=== PATIENT | female | born 1980 | race Caucasian/White ===

== ENCOUNTER 2017-07-27 18:12 | Emergency (ER) | payer MEDICAID, OTHER ==
[2017-07-27] MEDS ORDERED: ACETAMINOPHEN 325 MG TABLET PO ONE (18:49)
--- NOTE | 2017-07-27 20:42 | RADIOLOGY REPORT (SQ) ---
EXAM DESCRIPTION: HIP RIGHT AP/LATERAL COMPLETED DATE/TIME: 07/27/2017 8:26 pm REASON FOR STUDY: Fall, right hip pain COMPARISON: None. NUMBER OF VIEWS: Two views. TECHNIQUE: AP pelvis and additional frog-leg view of the right hip. LIMITATIONS: None. FINDINGS: MINERALIZATION: Osteopenic RIGHT HIP: No acute fracture or dislocation. Old healed right iliac crest and medial acetabular fra ctures LEFT HIP: No fracture or dislocation. No worrisome bone lesions. PUBIS AND ISCHIUM: No fracture. PELVIS: Old healed right hemipelvis fracture over the iliac crest, with multiple screws over the ante rior superior and anterior inferior iliac spines SACRUM: No fracture or dislocation. No worrisome bone lesions. LOWER LUMBAR SPINE: No fracture or dislocation. No worrisome bone lesions. No significant disc disea se. SOFT TISSUES: No findings. OTHER: No other significant finding. IMPRESSION: Old right iliac crest and right acetabular fractures. No acute Fracture. TECHNICAL DOCUMENTATION: JOB ID: [id number] [employer]- All Rights Reserved
--- NOTE | 2017-07-27 20:43 | RADIOLOGY REPORT (SQ) ---
EXAM DESCRIPTION: FOOT RIGHT COMPLETE COMPLETED DATE/TIME: 07/27/2017 8:27 pm REASON FOR STUDY: fall, ankle pain COMPARISON: None. NUMBER OF VIEWS: Three views. TECHNIQUE: AP, lateral and oblique radiographic images acquired of the right foot. LIMITATIONS: Right ankle not well seen, nonstandard radiographic positioning FINDINGS: MINERALIZATION: Normal. BONES: No acute fracture or dislocation. No worrisome bone lesions. JOINTS: No effusions. SOFT TISSUES: No soft tissue swelling. No foreign body. OTHER: No other significant finding. IMPRESSION: No gross acute displaced fracture TECHNICAL DOCUMENTATION: JOB ID: [id number] [employer]- All Rights Reserved
--- NOTE | 2017-07-27 21:11 | ER Document Report ---
ED General - General Mode of Arrival: Wheelchair Information source: Patient - HPI Onset: This afternoon <RACH MONTE - Last Filed: 07/27/17 21:44> <SPENCER RODAS - Last Filed: 07/27/17 22:42> - General Chief Complaint: Fall Stated Complaint: FALL/HIP PAIN Time Seen by Provider: 07/27/17 19:19 Notes: Patient is a 37 year old female with a history of hip dysplasia presents to the emergency department due to a mechanical fall onset today. Patient states she was inside from outside when she fell on her right leg. Patient states as she was falling her right foot rolled and it felt like her hip was going to pop out of place. Patient states that her RLE hurts and she states her right hip feels like it still wants to dislocate. Patient denies any injuries due to the fall. (RACH MONTE) - Related Data Allergies/Adverse Reactions: meperidine HCl [From Demerol] Allergy (Verified 10/24/13 18:29) oxycodone [Oxycodone] Allergy (Verified 10/24/13 18:29) latex [Latex] Adverse Reaction (Verified 10/24/13 18:29) Past Medical History - Social History Smoking Status: Former Smoker Chew tobacco use (# tins/day): No Frequency of alcohol use: Rare Drug Abuse: None Family History: Reviewed & Not Pertinent Patient has suicidal ideation: No Patient has homicidal ideation: No Neurological Medical History: Reports: Hx Seizures Renal/ Medical History: Denies: Hx Peritoneal Dialysis Psychiatric Medical History: Reports: Hx Bipolar Disorder, Hx Depression Past Surgical History: Reports: Hx Abdominal Surgery - colon., Hx Section, Hx Cholecystectomy, Hx Hysterectomy - Immunizations Hx Diphtheria, Pertussis, Tetanus Vaccination: No <SPENCER RODAS - Last Filed: 07/27/17 22:42> Review of Systems - Review of Systems Constitutional: No symptoms reported EENT: No symptoms reported Cardiovascular: No symptoms reported Respiratory: No symptoms reported Gastrointestinal: No symptoms reported Genitourinary: No symptoms reported Female Genitourinary: No symptoms reported Musculoskeletal: See HPI - right hip and leg pain, Other Skin: No symptoms reported Hematologic/Lymphatic: No symptoms reported Neurological/Psychological: No symptoms reported -: Yes All other systems reviewed and negative <RACH MONTE - Last Filed: 07/27/17 21:44> Physical Exam <LAVELLSIMONAJESSI - Last Filed: 07/27/17 21:44> <SPENCER RODAS - Last Filed: 07/27/17 22:42> - Vital signs Vitals: Temp Pulse Resp BP Pulse Ox 97.8 F 64 16 120/67 99 07/27/17 22:11 07/27/17 22:11 07/27/17 22:11 07/27/17 22:11 07/27/17 22:11 - Notes Notes: GENERAL: Alert, interacts well. No acute distress. HEAD: Normocephalic, atraumatic. EYES: Pupils equal, round, and reactive to light. Extraocular movements intact. ENT: Oral mucosa moist, tongue midline. NECK: Full range of motion. Supple. Trachea midline. LUNGS: Clear to auscultation bilaterally, no wheezes, rales, or rhonchi. No respiratory distress. HEART: Regular rate and rhythm. No murmurs, gallops, or rubs. ABDOMEN: Soft, non-tender. Non-distended. Bowel sounds present in all 4 quadrants. EXTREMITIES: Moves all 4 extremities spontaneously. No bony deformities compared to baseline. Inward turned right foot with sco No edema, radial and dorsalis pedis pulses 2/4 bilaterally. No cyanosis. NEUROLOGICAL: Alert and oriented x3. Normal speech. PSYCH: Normal affect, normal mood. SKIN: Warm, dry, normal turgor. No rashes or lesions noted. (RACH MONTE) Right foot has pain when it is straightened, no evidence of dislocation, right foot is turned inward with mild tenderness to the posterior aspect of the lateral malleolus., Right hip can be moved through full range of motion without pain, deformity or dislocation. (SPENCER RODAS) Course <RACH MONTE - Last Filed: 07/27/17 21:44> <SPENCER RODAS - Last Filed: 07/27/17 22:42> - Re-evaluation Re-evalutation: 07/27/17 21:07 X-rays negative though there is nonstandard positioning given her chronic foot deformity on the foot x-ray. Patient has full range of motion, no pain when distracted, states she feels like her hip is dislocating however unable to take her through a full range of motion without any difficulty, at that point she admits her hip is not dislocating. I see no signs of acute injury beyond a mild ankle sprain. Patient will be given an Roland wrap, crutches and discharged to home. (SPENCER RODAS) - Vital Signs Vital signs: Temp Pulse Resp BP Pulse Ox 97.8 F 64 16 120/67 99 07/27/17 22:11 07/27/17 22:11 07/27/17 22:11 07/27/17 22:11 07/27/17 22:11 Procedures - Immobilization Right Ankle Pre-Proc Neuro Vasc Exam: Abnormal - Right foot is chronically turned in. Immobilizer type: Roland wrap Performed by: PCT Post-Proc Neuro Vasc Exam: Abnormal, Unchanged from pre-exam Alignment checked and good: Yes <SPENCER RODAS - Last Filed: 07/27/17 22:42> Discharge <RACH MONTE - Last Filed: 07/27/17 21:44> <SPENCER RODAS - Last Filed: 07/27/17 22:42> - Discharge Clinical Impression: Fall at home Qualifiers: Encounter type: initial encounter Qualified Code(s): W19.XXXA - Unspecified fall, initial encounter Right ankle sprain Qualifiers: Encounter type: initial encounter Involved ligament of ankle: posterior talofibular ligament Qualified Code(s): S93.491A - Sprain of other ligament of right ankle, initial encounter Condition: Stable Disposition: HOME, SELF-CARE Instructions: Sprained Ankle ([facility]) Referrals: ANDRE PARMAR MD [ACTIVE STAFF] - Follow up in 3-5 days Scribe Attestation: 07/27/17 22:42 I personally performed the services described in the documentation, reviewed and edited the documentation which was dictated to the scribe in my presence, and it accurately records my words and actions. (SPENCER RODAS) Scribe Documentation - Scribe Written by Scribe:: Jose Hernandez, 07/27/2017 21:44 acting as scribe for :: Ary <RACH MONTE - Last Filed: 07/27/17 21:44>
[2017-07-27 22:12] VITALS: BP 120/67
== END 2017-07-27 22:11 | disposition home or self-care (01) ==
LOC: ER 18:12
DX: S93.491A Sprain of other ligament of right ankle, initial encounter (principal); S79.911A Unspecified injury of right hip, initial encounter; W19.XXXA Unspecified fall, initial encounter; Y92.009 Unspecified place in unspecified non-institutional (private) residence as the place of occurrence of the external cause; Z88.6 Allergy status to analgesic agent; Z91.040 Latex allergy status; Z90.49 Acquired absence of other specified parts of digestive tract; Z90.710 Acquired absence of both cervix and uterus
CPT/HCPCS: 99283; 73630; 73502; J3490

== ENCOUNTER 2017-07-29 18:03 | Emergency (ER) | payer MEDICAID ==
[2017-07-29] MEDS ORDERED: ONDANSETRON HCL INJ/PF 4 MG/2 ML SDV IV ONE (18:46)
[2017-07-29] MEDS ORDERED: NORMAL SALINE 1000 ML 1,000 ML IV ONE (18:46)
--- NOTE | 2017-07-29 18:56 | ER Document Report ---
ED Medical Screen (RME) - General Chief Complaint: Abdominal pain, anxiety, vomiting Stated Complaint: ABDOMINAL PAIN,VOMITING Time Seen by Provider: 07/29/17 18:46 Mode of Arrival: Medic Information source: Patient TRAVEL OUTSIDE OF THE [place] IN LAST 30 DAYS: No - HPI Patient complains to provider of: abd pain Onset: Yesterday - pt. states she has h/o gastroparesis and had increased pain and vomiting today. Called EMS for further evaluation here - Related Data Allergies/Adverse Reactions: aspirin Allergy (Verified 07/29/17 18:40) meperidine HCl [From Demerol] Allergy (Verified 07/29/17 18:40) morphine Allergy (Verified 07/29/17 18:40) oxycodone [Oxycodone] Allergy (Verified 07/29/17 18:40) Penicillins Allergy (Verified 07/29/17 18:40) latex [Latex] Adverse Reaction (Verified 07/29/17 18:40) Home Medications: Current Home Medications Methocarbamol [Robaxin 750 mg Tablet] 1 tab PO BID 07/29/17 [History] Omeprazole [Omeprazole] 1 tab PO DAILY 07/29/17 [History] Venlafaxine HCl ER [Effexor Xr 75 mg Cap.sr] 75 mg PO DAILY 07/29/17 [History] Past Medical History - Social History Chew tobacco use (# tins/day): No Frequency of alcohol use: None Drug Abuse: None Neurological Medical History: Reports: Hx Seizures Renal/ Medical History: Denies: Hx Peritoneal Dialysis Psychiatric Medical History: Reports: Hx Bipolar Disorder, Hx Depression Past Surgical History: Reports: Hx Abdominal Surgery - colon., Hx Section, Hx Cholecystectomy, Hx Hysterectomy - Immunizations Hx Diphtheria, Pertussis, Tetanus Vaccination: No Physical Exam - Vital signs Vitals: Temp Pulse BP Pulse Ox 98.4 F 99 127/76 H 99 07/29/17 18:30 07/29/17 18:30 07/29/17 18:30 07/29/17 18:30 Course - Vital Signs Vital signs: Temp Pulse Resp BP Pulse Ox 98.4 F 99 127/76 H 99 07/29/17 18:30 07/29/17 18:30 07/29/17 18:30 07/29/17 18:30
[2017-07-29 19:36] LABS: ABSOLUTE BASOPHILS # (AUTO) 0.1 10^3/uL (0.0-0.2); ABSOLUTE LYMPHOCYTES (AUTO) 1.1 10^3/uL (0.5-4.7); ABSOLUTE MONOCYTES (AUTO) 0.3 10^3/uL (0.1-1.4); ABSOLUTE NEUT (AUTO) 3.2 10^3/uL (1.7-8.2); BASOPHILS % (AUTO) 1.4 % (0-2); EOSINOPHILS % (AUTO) 0.2 % (0-6); HEMOGLOBIN 15.3 g/dL (12.0-15.5); HGB HCT DIFFERENCE 1.9; LYMPHOCYTES % (AUTO) 23.5 % (13-45); MEAN CORPUSCULAR HEMOGLOBIN 28.8 pg (27.0-33.4); MEAN CORPUSCULAR HGB CONC 34.9 g/dL (32.0-36.0); MEAN CORPUSCULAR VOLUME 83 fl (80-97); MONOCYTES % (AUTO) 5.5 % (3-13); RED BLOOD COUNT 5.33 10^6/uL (3.72-5.28); RED CELL DISTRIBUTION WIDTH 13.7 % (11.5-14.0); SEGMENTED NEUTROPHILS % (AUTO) 69.4 % (42-78); WHITE BLOOD COUNT 4.6 10^3/uL (4.0-10.5)
[2017-07-29 19:44] LABS: APPEARANCE,URINE SLIGHTLY-CLOUDY; BILIRUBIN,URINE NEGATIVE (NEGATIVE); GLUCOSE, URINE NEGATIVE (NEGATIVE); KETONES,URINE 80 mg/dL (NEGATIVE); LEUKOCYTE ESTERASE,URINE TRACE (NEGATIVE); NITRITE,URINE NEGATIVE (NEGATIVE); PROTEIN,URINE 30 mg/dL (NEGATIVE); URINE SPECIFIC GRAVITY 1.026
[2017-07-29 19:56] LABS: ALANINE AMINOTRANSFERASE 37 U/L (9-52); ALBUMIN 4.6 g/dL (3.5-5.0); ALKALINE PHOSPHATASE 103 U/L (38-126); ANION GAP 15 (5-19); ASPARTATE AMINO TRANSFERASE 24 U/L (14-36); BILIRUBIN,DIRECT 0.3 mg/dL (0.0-0.4); BILIRUBIN,TOTAL 0.6 mg/dL (0.2-1.3); BLOOD UREA NITROGEN 14 mg/dL (7-20); CALCIUM 9.5 mg/dL (8.4-10.2); CARBON DIOXIDE 25 mmol/L (22-30); CHLORIDE 104 mmol/L (98-107); GLUCOSE 98 mg/dL (75-110); LIPASE 32.9 U/L (23-300); POTASSIUM 3.8 mmol/L (3.6-5.0); SODIUM 143.6 mmol/L (137-145)
[2017-07-29 20:13] LABS: BACTERIA,URINE TRACE /HPF; RBC,URINE 0-1 /HPF; WBC,URINE 0-1 /HPF
--- NOTE | 2017-07-29 20:17 | RADIOLOGY REPORT (SQ) ---
EXAM DESCRIPTION: ACUTE ABDOMEN SERIES COMPLETED DATE/TIME: 07/29/2017 8:04 pm REASON FOR STUDY: abd pain COMPARISON: None. NUMBER OF VIEWS: Three views. TECHNIQUE: Frontal chest, supine abdomen and upright/decubitus abdomen radiographic images acquired. LIMITATIONS: None. FINDINGS: CHEST: Lungs clear of infiltrates. FREE AIR: None. No abnormal gas collections. BOWEL GAS PATTERN: Nonobstructive pattern. No dilated loops or air fluid levels. CALCIFICATIONS: No suspicious calcifications. HARDWARE: None in the abdomen. SOFT TISSUES: No gross mass or suggestion of organomegaly. BONES: No acute fracture. No worrisome bone lesions. OTHER: No other significant finding. IMPRESSION: NO RADIOGRAPHIC EVIDENCE FOR ACUTE ABDOMINAL DISEASE. TECHNICAL DOCUMENTATION: JOB ID: [id number] 2010 [employer]- All Rights Reserved
--- NOTE | 2017-07-29 22:45 | ER Document Report ---
ED GI/ - General Chief Complaint: Abdominal pain, anxiety, vomiting Stated Complaint: ABDOMINAL PAIN,VOMITING Time Seen by Provider: 07/29/17 18:46 Mode of Arrival: Medic Notes: The patient is a 37-year-old female, past medical history bipolar, anxiety, gastroparesis, presents with nausea, vomiting and anxiety for the past 2 days. She said that every time she tries to eat or drink something, she vomits. She is not having abdominal pain. Patient denies hematemesis, diarrhea, constipation, chest pain, shortness of breath, urinary symptoms, fevers, marijuana use, headache or rash. TRAVEL OUTSIDE OF THE [place] IN LAST 30 DAYS: No - Related Data Allergies/Adverse Reactions: aspirin Allergy (Verified 07/29/17 18:40) meperidine HCl [From Demerol] Allergy (Verified 07/29/17 18:40) morphine Allergy (Verified 07/29/17 18:40) oxycodone [Oxycodone] Allergy (Verified 07/29/17 18:40) Penicillins Allergy (Verified 07/29/17 18:40) latex [Latex] Adverse Reaction (Verified 07/29/17 18:40) Home Medications: Current Home Medications Methocarbamol [Robaxin 750 mg Tablet] 1 tab PO BID 07/29/17 [History] Omeprazole [Omeprazole] 1 tab PO DAILY 07/29/17 [History] Venlafaxine HCl ER [Effexor Xr 75 mg Cap.sr] 75 mg PO DAILY 07/29/17 [History] Past Medical History - General Information source: Patient - Social History Smoking Status: Former Smoker Chew tobacco use (# tins/day): No Frequency of alcohol use: None Drug Abuse: None Family History: Reviewed & Not Pertinent Patient has suicidal ideation: No Patient has homicidal ideation: No Neurological Medical History: Reports: Hx Seizures Renal/ Medical History: Denies: Hx Peritoneal Dialysis Psychiatric Medical History: Reports: Hx Bipolar Disorder, Hx Depression Past Surgical History: Reports: Hx Abdominal Surgery - colon., Hx Section, Hx Cholecystectomy, Hx Hysterectomy - Immunizations Hx Diphtheria, Pertussis, Tetanus Vaccination: No Review of Systems - Review of Systems Notes: REVIEW OF SYSTEMS: CONSTITUTIONAL: -fevers, -chills EENT: -eye pain, -difficulty swallowing, -nasal congestion CARDIOVASCULAR:-chest pain, -syncope. RESPIRATORY: -cough, -SOB GASTROINTESTINAL: -abdominal pain, +nausea, +vomiting, -diarrhea GENITOURINARY: -dysuria, -hematuria MUSCULOSKELETAL: -back pain, -neck pain SKIN: -rash or skin lesions. HEMATOLOGIC: -easy bruising or bleeding. LYMPHATIC: -swollen, enlarged glands. NEUROLOGICAL: -altered mental status or loss of consciousness, -headache, - neurologic symptoms PSYCHIATRIC: +anxiety, -depression. ALL OTHER SYSTEMS REVIEWED AND NEGATIVE. Physical Exam - Vital signs Vitals: Temp Pulse BP Pulse Ox 98.4 F 99 127/76 H 99 07/29/17 18:30 07/29/17 18:30 07/29/17 18:30 07/29/17 18:30 - Notes Notes: PHYSICAL EXAMINATION: GENERAL: Well-appearing, well-nourished and in no acute distress. HEAD: Atraumatic, normocephalic. EYES: Pupils equal round and reactive to light, extraocular movements intact, sclera anicteric, conjunctiva are normal. ENT: nares patent, oropharynx clear without exudates. Moist mucous membranes. NECK: Normal range of motion, supple without lymphadenopathy LUNGS: Breath sounds clear to auscultation bilaterally and equal. No wheezes rales or rhonchi. HEART: Regular rate and rhythm without murmurs ABDOMEN: Soft, nontender, normoactive bowel sounds. No guarding, no rebound. No masses appreciated. EXTREMITIES: Normal range of motion, no pitting or edema. No cyanosis. NEUROLOGICAL: Cranial nerves grossly intact. Normal speech, normal gait. Normal sensory and motor exams. PSYCH: Normal mood, normal affect. SKIN: Warm, Dry, normal turgor, no rashes or lesions noted. Course - Re-evaluation Re-evalutation: Patient has a known history of gastroparesis. Blood work is unremarkable and urine shows large amount of ketones. She was provided with IV fluids, antiemetics and feels much better. She is tolerating fluids without vomiting. Repeat abdominal exam is completely nontender. Instructed patient to stay hydrated and follow-up with her GI doctor for further evaluation and treatment. - Vital Signs Vital signs: Temp Pulse Resp BP Pulse Ox 98.4 F 99 127/76 H 99 07/29/17 18:30 07/29/17 18:30 07/29/17 18:30 07/29/17 18:30 - Laboratory Result Diagrams: 07/29/17 19:01 07/29/17 19:01 Laboratory results interpreted by me: 07/29/17 07/29/17 19:01 19:01 RBC 5.33 H Plt Count 145 L Urine Protein 30 H Urine Ketones 80 H Urine Urobilinogen 2.0 H Ur Leukocyte Esterase TRACE H - Diagnostic Test Radiology reviewed: Image reviewed, Reports reviewed Radiology results interpreted by me: Obstruction series: NAD Discharge - Discharge Clinical Impression: Nausea & vomiting Qualifiers: Vomiting type: unspecified Vomiting Intractability: non-intractable Qualified Code(s): R11.2 - Nausea with vomiting, unspecified Condition: Stable Additional Instructions: VOMITING: Vomiting (or nausea without vomiting) can be caused by many other different problems. It can mean that something's wrong with the stomach, such as ulcers or inflammation or the intestinal tract, such as appendicitis. But it can also be a symptom of a problem that has nothing to do with the stomach or intestines. Vomiting is common with severe headaches, earaches, tonsillitis, and kidney infections, etc. We see it with pneumonia or heart attacks. Drugs can cause nausea and vomiting. Many abdominal problems cause vomiting; for example, gallstones, kidney stones, pancreatitis, and intestinal obstruction ( blocked bowels). In most cases, curing the vomiting depends on fixing the problem that caused it. For temporary relief, we may use an anti-nausea medicine. For home use, we can prescribe suppositories, chewable pills, pills that dissolve in the mouth, or liquid anti-nausea drugs. If the vomiting seems to be caused by a problem in the stomach, acid-suppressing drugs may be prescribed as well. It's important to avoid dehydration. Sip small amounts of clear liquids ( soft drinks, tea, broth, etc) . Try to take fluids frequently even if you are vomiting to prevent dehydration. Take increasing amounts of fluid and when liquids are being consumed successfully, advance to small amounts of bland food (toast, soups, mashed potatoes, etc.) until you are able to resume a regular diet. Avoid aspirin, tobacco, and alcohol. If the vomiting worsens, if the problem that's making you vomit worsens, or if there's evidence of bleeding in the stomach (such as black, tarry stool, or bloody or black vomit), you should return immediately. Also, return if abdominal pain worsens or becomes localized to one area or you develop high fever. Call your doctor if you aren't improved in 24 hours. INTRAVENOUS (I V) FLUIDS: As part of your care today, you received intravenous (IV) fluids. IV fluids are administered to patients who are dehydrated or to those who have certain chemical (electrolyte) abnormalities that need correcting. ANTINAUSEA MEDICATION: You have been given a medication to suppress nausea and vomiting. This type of medication can be given as a shot, pill, or suppository. It will usually last for many hours. Pills and shots usually last six to eight hours. For the typical illness, only one or two doses of the medication may be necessary. Mild lightheadedness may occur. This type of medicine can cause drowsiness. Do not drive or operate dangerous machinery while under its influence. Do not mix with alcohol. See your doctor at once if you have muscle spasms or tightness, or uncontrollable motions (particularly of the neck, mouth, or jaw). Persistent vomiting or severe lightheadedness should also be evaluated by the physician. REGLAN (METOCLOPRAMIDE): Reglan has been prescribed. This medicine affects the stomach and intestines. It can be used to treat nausea and vomiting, to prevent reflux of stomach acid up into the esophagus, or to increase the contractions of the stomach and intestines. It is often prescribed for esophagitis, and for paralysis of the stomach in diabetics. Reglan can cause either mild restlessness or drowsiness. You should contact the doctor at once if you become extremely restless, anxious, or cannot sleep, or if you develop uncontrollable motions of the lips, tongue, or jaw. Do not take alcohol with this medicine. Do not drive or operate machinery until you have been taking this medicine long enough to know how it affects you. Call the doctor if you develop abdominal pains, lightheadedness, black stool, or blood in the stool or vomitus. FOLLOW-UP CARE: If you have been referred to a physician for follow-up care, call the physician s office for an appointment as you were instructed or within the next two days. If you experience worsening or a significant change in your symptoms, notify the physician immediately or return to the Emergency Department at any time for re-evaluation. Prescriptions: Metoclopramide HCl [Reglan 10 mg Tablet] 1 - 2 tab PO ASDIR PRN #[id number] tablet PRN Reason: Referrals: KADEN CARABALLO MD [ACTIVE STAFF] - Follow up as needed
[2017-07-29] MEDS ORDERED: METOCLOPRAMIDE HCL INJ/PF 10 MG/2 ML SDV IV ONE (22:56)
[2017-07-29] MEDS ORDERED: DEXTROSE 5%-1/2 NORMAL SALINE 1,000 ML IV ONE (22:57)
[2017-07-30 01:20] VITALS: BP 107/78
== END 2017-07-30 01:20 | disposition home or self-care (01) ==
LOC: ER 18:03
DX: R11.2 Nausea with vomiting, unspecified (principal); R10.9 Unspecified abdominal pain; F41.9 Anxiety disorder, unspecified; F31.9 Bipolar disorder, unspecified; Z79.899 Other long term (current) drug therapy; Z87.891 Personal history of nicotine dependence
CPT/HCPCS: 99284; 96361; 96374; 36415; 83690; 85025; 81025; 80053; 81001; 74022; J2765; J2405; J7030

== ENCOUNTER → 2017-10-24 | Outpatient (CLI) | payer MEDICAID ==
--- NOTE | 2017-10-24 14:03 | WOMENS IMAGING REPORT ---
EXAM DESCRIPTION: BONE DENSITY HIP/SPINE COMPLETED DATE/TIME: 10/24/2017 1:35 pm REASON FOR STUDY: OSTEO COMPRESSION FX M54.6 PAIN IN THORACIC SPINE M81.0 AGE-RELATED OSTEOPOROSIS W/O CURRENT PATHOLOGICAL FRAC COMPARISON: None. TECHNIQUE: Dual-Energy X-ray Absorptiometry (DEXA) of the AP Spine and Hip. LIMITATIONS: None. FINDINGS: LUMBAR SPINE: The bone mineral density (BMD) measured from L1-L4 in the AP projection correlates with a T-score of -3.5, which is osteoporotic as defined by the World Health Organization. HIP: The bone mineral density (BMD) measured in the left femoral neck at the hip correlates with a T-score of -3.5, which is osteoporotic as defined by the World Health Organization. IMPRESSION: 1. LUMBAR SPINE: Osteoporotic 2. HIP: Osteoporotic COMMENT: The World Health Organization defines low BMD as follows: T-score: Normal: Greater than -1.0 Osteopenia: Between -1.0 and -2.5 Osteoporosis: Less than -2.5 without fractures Established osteoporosis: Less than -2.5 with fractures In general, you may wish to consider: Diagnosis Treatment Follow-up DEXA Normal BMD Prevention 2-3 years Osteopenia Prevention/Therapy 1-2 years Osteoporosis Therapy Yearly TECHNICAL DOCUMENTATION: JOB ID: [id number] [employer]- All Rights Reserved Reading location - IP/workstation name: [email or web address]
--- NOTE | 2017-10-24 14:38 | RADIOLOGY REPORT (SQ) ---
EXAM DESCRIPTION: MRI THORACIC SPINE WITHOUT COMPLETED DATE/TIME: 10/24/2017 12:55 pm REASON FOR STUDY: M54.6 PAIN IN THORACIC SPINE M54.6 PAIN IN THORACIC SPINE M81.0 AGE-RELATED OSTE OPOROSIS W/O CURRENT PATHOLOGICAL FRAC COMPARISON: None. TECHNIQUE: Sagittal and Axial imaging includes T1, T2, STIR and gradient echo sequences. LIMITATIONS: None. FINDINGS: LOCALIZER: No worrisome findings. ALIGNMENT: Accentuated upper thoracic kyphosis related to chronic appearing compression deformities. VERTEBRAE: 25% anterior wedge compressions are present at T2, T3, and T4. 50% compression of T5. 75 % compression at T6. 25% compression at T7. These findings are chronic. There are some fatty react kar endplate changes at T4-5, and T7-8. BONE MARROW: No marrow edema. No marrow replacement process worrisome for metastatic disease. HARDWARE: None in the spine. CORD: Normal in size and signal intensity. Conus is at the L1 level SOFT TISSUES: Consolidation in the right posterior lung base atelectasis versus pneumonia THORACIC DISCS T1-T12: No significant spinal stenosis or exit foraminal stenosis. LOWER CERVICAL: Incompletely imaged. No significant spinal stenosis or exit foraminal stenosis. UPPER LUMBAR: Incompletely imaged. No significant spinal stenosis or exit foraminal stenosis. OTHER: No other significant finding. IMPRESSION: Chronic compression deformities at T2 through T7. TECHNICAL DOCUMENTATION: JOB ID: [id number] [employer]- All Rights Reserved Reading location - IP/workstation name: [email or web address]
== END ==
LOC: RAD 13:58
PROVIDERS: ATTEND Physical Medicine & Rehabilitation
DX: M54.6 Pain in thoracic spine (principal); M81.0 Age-related osteoporosis without current pathological fracture
CPT/HCPCS: 72146; 77080

== ENCOUNTER 2019-07-19 23:28 | Emergency (ER) | payer MEDICAID ==
--- NOTE | 2019-07-20 00:41 | ER Document Report ---
ED General - General Chief Complaint: Rib Pain Stated Complaint: BACK PAIN Time Seen by Provider: 07/20/19 00:34 Primary Care Provider: DARSHAN YOUNGER MD [Primary Care Provider] - Follow up as needed Mode of Arrival: Ambulatory Information source: Patient Notes: This 38-year-old woman presents to the emergency department with a history of a fall 4 days ago. States that she fell at home in her kitchen when she accidentally tripped over her dog. She complains of pain in her left rib cage. She states the pain has worsened since the injury and increases with movement and deep breathing. She denies shortness of breath. She is concerned that she may have fractured a rib. TRAVEL OUTSIDE OF THE [place] IN LAST 30 DAYS: No - Related Data Allergies/Adverse Reactions: aspirin Allergy (Verified 07/29/17 18:40) meperidine HCl [From Demerol] Allergy (Verified 07/29/17 18:40) morphine Allergy (Verified 07/29/17 18:40) oxycodone [Oxycodone] Allergy (Verified 07/29/17 18:40) Penicillins Allergy (Verified 07/29/17 18:40) latex [Latex] Adverse Reaction (Verified 07/29/17 18:40) Home Medications: Omeprazole 40mg. Diltiazem 120mg. Carbamazepine 200mg Past Medical History - Social History Smoking Status: Former Smoker Family History: Reviewed & Not Pertinent Patient has suicidal ideation: No Patient has homicidal ideation: No Neurological Medical History: Reports: Hx Seizures Renal/ Medical History: Denies: Hx Peritoneal Dialysis Psychiatric Medical History: Reports: Hx Bipolar Disorder, Hx Depression Past Surgical History: Reports: Hx Abdominal Surgery - colon., Hx Section, Hx Cholecystectomy, Hx Hysterectomy - Immunizations Hx Diphtheria, Pertussis, Tetanus Vaccination: No Physical Exam - Vital signs Vitals: Temp Pulse Resp BP Pulse Ox 98.0 F 104 H 18 123/85 95 07/19/19 23:38 07/19/19 23:38 07/19/19 23:38 07/19/19 23:38 07/19/19 23:38 Course - Re-evaluation Re-evalutation: 07/20/19 01:34 38-year-old woman who fell 4 days ago after tripping over her dog having left rib cage pain and pain with deep breath. Review of the chest x-ray and rib series reveals no pneumothorax, no rib fractures, I have discussed this finding with the patient and reassured her that she may have contused the rib cage or inflammation has sent in. She is instructed to use cold pack compression to the area and I have given her prescription for Toradol tablets, 12. Patient acknowledges the information and is agreeable with the plan. - Vital Signs Vital signs: Temp Pulse Resp BP Pulse Ox 98.0 F 104 H 18 123/85 95 07/19/19 23:38 07/19/19 23:38 07/19/19 23:38 07/19/19 23:38 07/19/19 23:38 - Diagnostic Test Radiology reviewed: Image reviewed, Reports reviewed - Rib series, left chest, x-ray: No fracture of ribs seen. Chest x-ray: No pneumothorax, no infiltrate. Discharge - Discharge Clinical Impression: Contusion of rib on left side Qualifiers: Encounter type: initial encounter Qualified Code(s): S20.212A - Contusion of left front wall of thorax, initial encounter Fall Qualifiers: Encounter type: initial encounter Qualified Code(s): W19.XXXA - Unspecified fall, initial encounter Condition: Good Disposition: HOME, SELF-CARE Instructions: Ice Packs ([facility]), Rib Contusion ([facility]) Referrals: DARSHAN YOUNGER MD [Primary Care Provider] - Follow up as needed
[2019-07-20] MEDS ORDERED: KETOROLAC TROMETHAMINE 60 MG/2 ML SDV IM ONE (00:42)
--- NOTE | 2019-07-20 01:20 | RADIOLOGY REPORT (SQ) ---
EXAM DESCRIPTION: XR RIBS UNILATERAL WITH CHEST COMPLETED DATE/TME: 07/20/2019 00:41 CLINICAL HISTORY: 38 years, Female, Injury/fall COMPARISON: None. NUMBER OF VIEWS: Three TECHNIQUE: AP view of the chest with two views of the left ribs LIMITATIONS: None. FINDINGS: The lungs are clear. The heart is normal in size. There is no pneumothorax or pleural effusion. No rib fracture is identified. IMPRESSION: No rib fracture is identified. No acute cardiopulmonary abnormality copyright 2010 [employer]- All Rights Reserved
[2019-07-20 01:46] VITALS: BP 120/80
== END 2019-07-20 01:46 | disposition home or self-care (01) ==
LOC: ER 23:28
DX: S20.212A Contusion of left front wall of thorax, initial encounter (principal); R07.81 Pleurodynia; W01.0XXA Fall on same level from slipping, tripping and stumbling without subsequent striking against object, initial encounter; Y92.009 Unspecified place in unspecified non-institutional (private) residence as the place of occurrence of the external cause; Z88.0 Allergy status to penicillin; Z90.49 Acquired absence of other specified parts of digestive tract; Z90.710 Acquired absence of both cervix and uterus; Z91.040 Latex allergy status; Z88.6 Allergy status to analgesic agent
CPT/HCPCS: 99283; 96372; 71101; J1885

== ENCOUNTER 2019-08-08 13:29 | Emergency (ER) | payer MEDICAID ==
--- NOTE | 2019-08-08 15:01 | ER Document Report ---
ED Medical Screen (RME) - General Chief Complaint: Abdominal Pain Stated Complaint: ABDOMINAL/URINARY PAIN Time Seen by Provider: 08/08/19 14:56 Primary Care Provider: DARSHAN YOUNGER MD [Primary Care Provider] - Follow up as needed TRAVEL OUTSIDE OF THE [place] IN LAST 30 DAYS: No - HPI Notes: 08/08/19 15:00 Patient is a 39-year-old female with a history of total hysterectomy who presents complaining of mid lower and right abdominal pain with urinary burning, urgency, and frequency. Patient states that she has had a urinary infection for the past month and last had her urine checked 2 weeks ago and was placed on Macrobid which she finished. Patient is continuing to have symptoms. She does have sharp pain to her abdomen. No other vaginal odor or discharge. No fever, chest pain, shortness of breath, vomiting/diarrhea. I have treated and performed a rapid initial assessment of this patient. A comprehensive ED assessment and evaluation of the patient, analysis of test results and completion of medical decision making process will be conducted by additional ED providers. PHYSICAL EXAMINATION: GENERAL: Well-appearing, well-nourished and in no acute distress. A&Ox4. Answers questions appropriately. Abdomen: Limited exam in triage, but there is tenderness to the mid to lower abdomen on the right side. No CVA tenderness bilaterally. - Related Data Allergies/Adverse Reactions: aspirin Allergy (Verified 07/29/17 18:40) meperidine HCl [From Demerol] Allergy (Verified 07/29/17 18:40) morphine Allergy (Verified 07/29/17 18:40) oxycodone [Oxycodone] Allergy (Verified 07/29/17 18:40) Penicillins Allergy (Verified 07/29/17 18:40) amoxicillin Adverse Reaction (Verified 08/08/19 14:53) itching latex [Latex] Adverse Reaction (Verified 07/29/17 18:40) Home Medications: Tegretol. Omeprazole. Diltiazem Past Medical History - Social History Chew tobacco use (# tins/day): No Frequency of alcohol use: None Drug Abuse: None Neurological Medical History: Reports: Hx Seizures Renal/ Medical History: Denies: Hx Peritoneal Dialysis Psychiatric Medical History: Reports: Hx Bipolar Disorder, Hx Depression Past Surgical History: Reports: Hx Abdominal Surgery - colon., Hx Section, Hx Cholecystectomy, Hx Hysterectomy - Immunizations Hx Diphtheria, Pertussis, Tetanus Vaccination: No Physical Exam - Vital signs Vitals: Temp Pulse Resp BP Pulse Ox 98.2 F 76 20 127/86 H 97 08/08/19 13:35 08/08/19 13:35 08/08/19 13:35 08/08/19 13:35 08/08/19 13:35 Course - Vital Signs Vital signs: Temp Pulse Resp BP Pulse Ox 98.2 F 76 20 127/86 H 97 08/08/19 14:53 08/08/19 13:35 08/08/19 14:53 08/08/19 13:35 08/08/19 14:53 Doctor's Discharge - Discharge Referrals: DARSHAN YOUNGER MD [Primary Care Provider] - Follow up as needed
[2019-08-08] MEDS ORDERED: ACETAMINOPHEN 325 MG TABLET PO ONE (15:46)
[2019-08-08 15:51] LABS: APPEARANCE,URINE SLIGHTLY-CLOUDY; BILIRUBIN,URINE NEGATIVE (NEGATIVE); COLOR,URINE YELLOW; GLUCOSE, URINE NEGATIVE (NEGATIVE); KETONES,URINE NEGATIVE (NEGATIVE); PROTEIN,URINE NEGATIVE (NEGATIVE); URINE SPECIFIC GRAVITY 1.021; UROBILINOGEN,URINE NEGATIVE mg/dL (<2.0)
[2019-08-08 16:14] LABS: ABSOLUTE LYMPHOCYTES (AUTO) 1.3 10^3/uL (0.5-4.7); ABSOLUTE MONOCYTES (AUTO) 0.3 10^3/uL (0.1-1.4); ABSOLUTE NEUT (AUTO) 3.4 10^3/uL (1.7-8.2); BASOPHILS % (AUTO) 0.9 % (0-2); HEMATOCRIT 41.5 % (36.0-47.0); HEMOGLOBIN 14.4 g/dL (12.0-15.5); LYMPHOCYTES % (AUTO) 26.3 % (13-45); MEAN CORPUSCULAR HEMOGLOBIN 29.3 pg (27.0-33.4); MEAN CORPUSCULAR HGB CONC 34.7 g/dL (32.0-36.0); MEAN CORPUSCULAR VOLUME 85 fl (80-97); MONOCYTES % (AUTO) 5.7 % (3-13); PLATELET COUNT 156 10^3/uL (150-450); RED BLOOD COUNT 4.91 10^6/uL (3.72-5.28); RED CELL DISTRIBUTION WIDTH 13.1 % (11.5-14.0); SEGMENTED NEUTROPHILS % (AUTO) 67.1 % (42-78); TOTAL CELLS COUNTED % (AUTO) 100 %; WHITE BLOOD COUNT 5.1 10^3/uL (4.0-10.5)
[2019-08-08 16:21] LABS: ALBUMIN 4.7 g/dL (3.5-5.0); ALKALINE PHOSPHATASE 96 U/L (38-126); ANION GAP 11 (5-19); ASPARTATE AMINO TRANSFERASE 19 U/L (14-36); BILIRUBIN,DIRECT 0.1 mg/dL (0.0-0.4); BILIRUBIN,TOTAL 0.3 mg/dL (0.2-1.3); BLOOD UREA NITROGEN 18 mg/dL (7-20); CALCIUM 9.6 mg/dL (8.4-10.2); CARBON DIOXIDE 28 mmol/L (22-30); CHLORIDE 102 mmol/L (98-107); GLUCOSE 94 mg/dL (75-110); POTASSIUM 3.9 mmol/L (3.6-5.0); TOTAL PROTEIN 7.3 g/dL (6.3-8.2)
[2019-08-08] MEDS ORDERED: LEVOFLOXACIN 500 MG/D5W RTU 500 MG/100 ML RTUPB IV ONE (17:53)
--- NOTE | 2019-08-08 17:54 | ER Document Report ---
ED GI/ - General Chief Complaint: Abdominal Pain Stated Complaint: ABDOMINAL/URINARY PAIN Time Seen by Provider: 08/08/19 14:56 Primary Care Provider: DARSHAN YOUNGER MD [NO LOCAL MD] - Follow up as needed TRAVEL OUTSIDE OF THE [place] IN LAST 30 DAYS: No - HPI Notes: 08/08/19 39-year-old female to the emergency department with complaints of dysuria, urinary frequency, right flank pain, right-sided abdominal pain that began 3 to 4 days ago. She states that she has had a fever at home measuring approximately 101. She denies any nausea or vomiting. She states that she gets frequent urinary tract infections and feels like that she has had this urinary tract infection for about a month. She states that she took Macrobid about 2 weeks ago and completed it. However, her symptoms persisted. She denies any chest pain, shortness of breath, syncope. - Related Data Allergies/Adverse Reactions: aspirin Allergy (Verified 07/29/17 18:40) meperidine HCl [From Demerol] Allergy (Verified 07/29/17 18:40) morphine Allergy (Verified 07/29/17 18:40) oxycodone [Oxycodone] Allergy (Verified 07/29/17 18:40) Penicillins Allergy (Verified 07/29/17 18:40) amoxicillin Adverse Reaction (Verified 08/08/19 14:53) itching latex [Latex] Adverse Reaction (Verified 07/29/17 18:40) Home Medications: Tegretol. Omeprazole. Diltiazem Past Medical History - General Information source: Patient - Social History Smoking Status: Former Smoker Chew tobacco use (# tins/day): No Frequency of alcohol use: None Drug Abuse: None Family History: Reviewed & Not Pertinent Patient has suicidal ideation: No Patient has homicidal ideation: No Neurological Medical History: Reports: Hx Seizures Renal/ Medical History: Denies: Hx Peritoneal Dialysis Psychiatric Medical History: Reports: Hx Bipolar Disorder, Hx Depression Past Surgical History: Reports: Hx Abdominal Surgery - colon., Hx Section, Hx Cholecystectomy, Hx Hysterectomy, Hx Orthopedic Surgery - rt hip surgery - Immunizations Hx Diphtheria, Pertussis, Tetanus Vaccination: No Review of Systems - Review of Systems Constitutional: Fever. denies: Chills EENT: No symptoms reported Cardiovascular: denies: Chest pain, Palpitations, Syncope, Dizziness, Lightheaded Respiratory: denies: Cough, Short of breath Gastrointestinal: Abdominal pain. denies: Diarrhea, Nausea, Vomiting Genitourinary: Burning, Dysuria, Frequency, Flank pain, Urgency Female Genitourinary: No symptoms reported Musculoskeletal: No symptoms reported Skin: No symptoms reported Hematologic/Lymphatic: No symptoms reported Neurological/Psychological: No symptoms reported -: Yes All other systems reviewed and negative Physical Exam - Vital signs Vitals: Temp Pulse Resp BP Pulse Ox 98.2 F 76 20 127/86 H 97 08/08/19 13:35 08/08/19 13:35 08/08/19 13:35 08/08/19 13:35 08/08/19 13:35 Interpretation: Normal - General General appearance: Appears well, Alert In distress: None - HEENT Head: Normocephalic, Atraumatic Eyes: Normal Pupils: PERRL - Respiratory Respiratory status: No respiratory distress Chest status: Nontender. No: Accessory muscle use Breath sounds: Normal. No: Rales, Rhonchi, Stridor, Wheezing Chest palpation: Normal - Cardiovascular Rhythm: Regular Heart sounds: Normal auscultation Murmur: No - Abdominal Inspection: Normal Distension: No distension Bowel sounds: Normal Tenderness: Tender - Positive tenderness to palpation to the right side of the abdomen in the right upper quadrant and right lower quadrant. Negative Rovsing 's. Negative McBurney's point. Positive right-sided CVA tenderness.. 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 No: Pronator drift Sensory: Normal - Psychological Associated symptoms: Normal affect, Normal mood - Skin Skin Temperature: Warm Skin Moisture: Dry Skin Color: Normal Course - Re-evaluation Re-evalutation: 08/08/19 Impression: Urinary tract infection with likely early pyelonephritis because of the flank pain. Did scan the patient because she did have a little bit of right lower quadrant abdominal pain however the appendix was not visualized. Most of her pain is in the right flank though and she does have a urinanalysis that is most consistent with a urine source. We will go ahead and treat her with antibiotics for UTI/pyelonephritis and will have her return if she has worsening and localized right lower quadrant abdominal pain in the next 8-24 hours. She does not have a leukocytosis. She has not been febrile since she has been here. We will have her follow-up closely with primary care. She agrees with the plan. - Vital Signs Vital signs: Temp Pulse Resp BP Pulse Ox 98.2 F 76 20 127/86 H 97 08/08/19 14:53 08/08/19 13:35 08/08/19 14:53 08/08/19 13:35 08/08/19 14:53 - Laboratory Result Diagrams: 08/08/19 15:35 08/08/19 15:35 Laboratory results interpreted by me: 08/08/19 15:15 Leukocyte Esterase Rfl MODERATE H - Diagnostic Test Radiology reviewed: Image reviewed, Reports reviewed Discharge - Discharge Clinical Impression: Pyelonephritis, Dysuria, Urinary urgency Condition: Stable Disposition: HOME, SELF-CARE Instructions: Pyelonephritis ([facility]), Levofloxacin Additional Instructions: PUSH FLUIDS. COMPLETE ALL ANTIBIOTICS. FOLLOW UP WITH PRIMARY CARE IN THE NEXT 5 DAYS. RETURN IF WORSENING RIGHT LOWER QUADRANT ABDOMINAL PAIN, INTRACTABLE VOMITING, OR ANY OTHER CONCERNS. Prescriptions: Levofloxacin [Levaquin 500 mg Tablet] 500 mg PO DAILY #10 tablet Promethazine HCl [Phenergan 25 mg Tablet] 25 mg PO Q8H #15 tablet Referrals: DARSHAN YOUNGER MD [NO LOCAL MD] - Follow up in 3-5 days
[2019-08-08] MEDS ORDERED: KETOROLAC TROMETHAMINE INJ/PF 30 MG/1 ML SDV IV ONE (18:21)
--- NOTE | 2019-08-08 18:35 | RADIOLOGY REPORT (SQ) ---
EXAM DESCRIPTION: CT ABD/PELVIS NO ORAL OR IV COMPLETED DATE/TIME: 08/08/2019 6:11 pm REASON FOR STUDY: right flank pain, RLQ abd pain COMPARISON: None. TECHNIQUE: CT scan of the abdomen and pelvis performed without intravenous or oral contrast. Images reviewed with lung, soft tissue, and bone windows. Reconstructed coronal and sagittal MPR images revi ewed. All images stored on PACS. All CT scanners at this facility use dose modulation, iterative reconstruction, and/or weight based d osing when appropriate to reduce radiation dose to as low as reasonably achievable (ALARA). [facility]: Dose Right [facility]: CareDose [facility]: Dose Right [facility]: Teradose 4D [facility]: [employer] RADIATION DOSE: CT Rad equipment meets quality standard of care and radiation dose reduction techniq ues were employed. CTDIvol: 4.8 mGy. DLP: 246 mGy-cm.mGy. LIMITATIONS: None. FINDINGS: LOWER CHEST: Dependent scar/ subsegmental atelectasis with a component of mild rounded ate lectasis suggested in the right dependent lung base. No significant pleural effusion or calcificatio n. NON-CONTRASTED LIVER, SPLEEN, ADRENALS: Evaluation limited by lack of IV contrast. No identified sign ificant masses. PANCREAS: No masses. No peripancreatic inflammatory changes. GALLBLADDER: Surgically absent. RIGHT KIDNEY AND URETER: No solid masses. No significant calcification. No hydronephrosis or hydroure ter. LEFT KIDNEY AND URETER: No solid masses. No significant calcification. No hydronephrosis or hydrouret er. AORTA AND RETROPERITONEUM: No aneurysm. No retroperitoneal masses or adenopathy. BOWEL AND PERITONEAL CAVITY: Moderate stool in the rectum and sigmoid colon and in the cecum and asce nding colon. No mechanical bowel obstruction. No ascites or abnormal gas. APPENDIX: Not visualized. PELVIS, BLADDER, AND ABDOMINAL WALL:No abnormal masses. No free fluid. Bladder normal. BONES: Postoperative changes in the right iliac wing. No acute fracture or worrisome bone lesion. OTHER: No other significant finding. IMPRESSION: 1. No acute or suspicious abdominopelvic abnormality. TECHNICAL DOCUMENTATION: JOB ID: [id number] Quality ID # [id number]: Final reports with documentation of one or more dose reduction techniques (e.g., Au tomated exposure control, adjustment of the mA and/or kV according to patient size, use of iterative reconstruction technique) 2010 [employer]- All Rights Reserved Reading location - IP/workstation name: [email or web address]
[2019-08-08] MEDS ORDERED: DIPHENHYDRAMINE HCL 50 MG/ML VIAL IV ONE (19:02)
[2019-08-08 19:35] LABS: CHLAM PCR NOT DETECTED (NOT DETECT)
[2019-08-08 20:34] VITALS: BP 111/78
== END 2019-08-08 20:34 | disposition home or self-care (01) ==
LOC: ER 13:29
DX: N12 Tubulo-interstitial nephritis, not specified as acute or chronic (principal); R10.9 Unspecified abdominal pain; R30.0 Dysuria; R35.0 Frequency of micturition; R50.9 Fever, unspecified; Z88.6 Allergy status to analgesic agent; Z87.440 Personal history of urinary (tract) infections; Z91.040 Latex allergy status; Z88.0 Allergy status to penicillin; Z90.710 Acquired absence of both cervix and uterus
CPT/HCPCS: 99284; 96375; 96365; 36415; 87086; 85025; 87088; 80053; 81001; 87186; 87491; 87591; 74176; J3490; J1956; J1200; J1885

== ENCOUNTER 2019-08-23 13:19 | Emergency (ER) | payer MEDICAID ==
--- NOTE | 2019-08-23 14:36 | ER Document Report ---
ED Medical Screen (RME) - General Chief Complaint: Urinary Problem Stated Complaint: URINARY PROBLEM/ABDOMINAL PAIN/DIARRHEA Time Seen by Provider: 08/23/19 14:32 Mode of Arrival: Ambulatory Information source: Patient Notes: 39-year-old female with history of UTI recent treatment 2 weeks ago presents to the emergency department with complaints of right-sided flank pain. Reports still having urinary symptoms. Also complains right leg pain right arm pain right sided face pain. Reports she took Tylenol without relief of symptoms. I have greeted and performed a rapid initial assessment of this patient. A comprehensive ED assessment and evaluation of the patient, analysis of test results and completion of the medical decision making process will be conducted by additional ED providers. TRAVEL OUTSIDE OF THE [place] IN LAST 30 DAYS: No - Related Data Allergies/Adverse Reactions: aspirin Allergy (Verified 07/29/17 18:40) meperidine HCl [From Demerol] Allergy (Verified 07/29/17 18:40) morphine Allergy (Verified 07/29/17 18:40) oxycodone [Oxycodone] Allergy (Verified 07/29/17 18:40) Penicillins Allergy (Verified 07/29/17 18:40) amoxicillin Adverse Reaction (Verified 08/08/19 14:53) itching latex [Latex] Adverse Reaction (Verified 07/29/17 18:40) Past Medical History Neurological Medical History: Reports: Hx Seizures Renal/ Medical History: Denies: Hx Peritoneal Dialysis Psychiatric Medical History: Reports: Hx Bipolar Disorder, Hx Depression Past Surgical History: Reports: Hx Abdominal Surgery - colon., Hx Section, Hx Cholecystectomy, Hx Hysterectomy, Hx Orthopedic Surgery - rt hip surgery - Immunizations Hx Diphtheria, Pertussis, Tetanus Vaccination: No Physical Exam - Vital signs Vitals: Temp Pulse Resp BP Pulse Ox 98.1 F 74 16 140/84 H 98 08/23/19 14:16 08/23/19 14:16 08/23/19 14:16 08/23/19 14:16 08/23/19 14:16 Course - Vital Signs Vital signs: Temp Pulse Resp BP Pulse Ox 98.1 F 74 16 140/84 H 98 08/23/19 14:16 08/23/19 14:16 08/23/19 14:16 08/23/19 14:16 08/23/19 14:16
[2019-08-23 15:11] LABS: ABSOLUTE MONOCYTES (AUTO) 0.2 10^3/uL (0.1-1.4); ABSOLUTE NEUT (AUTO) 2.2 10^3/uL (1.7-8.2); BASOPHILS % (AUTO) 0.7 % (0-2); EOSINOPHILS % (AUTO) 0.1 % (0-6); HEMATOCRIT 45.2 % (36.0-47.0); HEMOGLOBIN 15.8 g/dL (12.0-15.5); LYMPHOCYTES % (AUTO) 27.7 % (13-45); MEAN CORPUSCULAR HEMOGLOBIN 29.5 pg (27.0-33.4); MEAN CORPUSCULAR VOLUME 84 fl (80-97); MONOCYTES % (AUTO) 6.4 % (3-13); PLATELET COUNT 164 10^3/uL (150-450); RED BLOOD COUNT 5.36 10^6/uL (3.72-5.28); RED CELL DISTRIBUTION WIDTH 13.5 % (11.5-14.0); SEGMENTED NEUTROPHILS % (AUTO) 65.1 % (42-78); TOTAL CELLS COUNTED % (AUTO) 100 %; WHITE BLOOD COUNT 3.4 10^3/uL (4.0-10.5)
[2019-08-23 15:23] LABS: APPEARANCE,URINE SLIGHTLY-CLOUDY; BILIRUBIN,URINE NEGATIVE (NEGATIVE); COLOR,URINE YELLOW; GLUCOSE, URINE NEGATIVE (NEGATIVE); KETONES,URINE 20 mg/dL (NEGATIVE); PROTEIN,URINE 30 mg/dL (NEGATIVE); URINE SPECIFIC GRAVITY 1.025; UROBILINOGEN,URINE NEGATIVE mg/dL (<2.0)
[2019-08-23 15:26] LABS: ALBUMIN 4.7 g/dL (3.5-5.0); ALKALINE PHOSPHATASE 125 U/L (38-126); ANION GAP 14 (5-19); ASPARTATE AMINO TRANSFERASE 24 U/L (14-36); BILIRUBIN,DIRECT 0.2 mg/dL (0.0-0.4); BILIRUBIN,TOTAL 0.4 mg/dL (0.2-1.3); BLOOD UREA NITROGEN 15 mg/dL (7-20); CALCIUM 9.6 mg/dL (8.4-10.2); CARBON DIOXIDE 28 mmol/L (22-30); CHLORIDE 99 mmol/L (98-107); GLUCOSE 94 mg/dL (75-110); POTASSIUM 3.9 mmol/L (3.6-5.0); TOTAL PROTEIN 7.6 g/dL (6.3-8.2)
--- NOTE | 2019-08-23 16:35 | RADIOLOGY REPORT (SQ) ---
EXAM DESCRIPTION: [employer] COMPLETED DATE/TIME: 08/23/2019 4:15 pm REASON FOR STUDY: flank pain hx UTI COMPARISON: None. TECHNIQUE: Dynamic and static grayscale images acquired of the kidneys and bladder and recorded on P ACS. Additional selected color Doppler and spectral images recorded. LIMITATIONS: None. FINDINGS: RIGHT KIDNEY: Normal size. Normal echogenicity. No solid or suspicious masses. No h ydronephrosis. No calcifications. LEFT KIDNEY: Normal size. Normal echogenicity. 19 x 14 x 18 mm inferior pole cyst containing low level nonvascular internal echoes. No hydronephrosis. No calcifications. BLADDER: Incompletely distended. No gross masses. Ureteral jets not visualized. OTHER FINDINGS: No other significant finding. IMPRESSION: 1.9 cm left inferior pole cyst containing low level nonvascular internal echoes, which m ay represent a complex cyst, or potentially a renal abscess in the appropriate clinical setting. TECHNICAL DOCUMENTATION: JOB ID: [id number] [employer]- All Rights Reserved Reading location - IP/workstation name: [email or web address]
--- NOTE | 2019-08-23 17:47 | ER Document Report ---
Entered by VERONIKA ROTHMAN SCRIBE 08/23/19 0397 Acting as scribe for:ANDERSON QUICK IV, MD ED GI/ - General Chief Complaint: Flank Pain Stated Complaint: URINARY PROBLEM/ABDOMINAL PAIN/DIARRHEA Time Seen by Provider: 08/23/19 14:32 Mode of Arrival: Ambulatory Information source: Patient Notes: This 39 year old female patient presents to the ED today with complaints of right-sided flank pain, dysuria, and lower abdominal pain for the past x1 month. Patient states that she had UTI treatment x2 weeks ago without improvement. Patient reports urinary frequency and an episode of diarrhea x1 day ago, but denies fever and chills. Possible DDx: ovarian cyst, kidney stone, diverticulitis, colitis TRAVEL OUTSIDE OF THE [place] IN LAST 30 DAYS: No - Related Data Allergies/Adverse Reactions: aspirin Allergy (Verified 07/29/17 18:40) meperidine HCl [From Demerol] Allergy (Verified 07/29/17 18:40) morphine Allergy (Verified 07/29/17 18:40) oxycodone [Oxycodone] Allergy (Verified 07/29/17 18:40) Penicillins Allergy (Verified 07/29/17 18:40) amoxicillin Adverse Reaction (Verified 08/08/19 14:53) itching latex [Latex] Adverse Reaction (Verified 07/29/17 18:40) Past Medical History - General Information source: Patient - Social History Smoking Status: Never Smoker Cigarette use (# per day): No Chew tobacco use (# tins/day): No Smoking Education Provided: No Frequency of alcohol use: None Drug Abuse: None Family History: Reviewed & Not Pertinent Patient has suicidal ideation: No Patient has homicidal ideation: No Neurological Medical History: Reports: Hx Seizures Psychiatric Medical History: Reports: Hx Bipolar Disorder, Hx Depression Past Surgical History: Reports: Hx Abdominal Surgery - colon., Hx Section, Hx Cholecystectomy, Hx Hysterectomy, Hx Orthopedic Surgery - rt hip surgery - Immunizations Hx Diphtheria, Pertussis, Tetanus Vaccination: No Review of Systems - Review of Systems Constitutional: See HPI. denies: Chills, Fever EENT: No symptoms reported Cardiovascular: No symptoms reported Respiratory: No symptoms reported Gastrointestinal: See HPI, Abdominal pain, Diarrhea Genitourinary: See HPI, Frequency, Flank pain Female Genitourinary: No symptoms reported Musculoskeletal: No symptoms reported Skin: No symptoms reported Hematologic/Lymphatic: No symptoms reported Neurological/Psychological: No symptoms reported -: Yes All other systems reviewed and negative Physical Exam - Vital signs Vitals: Temp Pulse Resp BP Pulse Ox 98.1 F 74 16 140/84 H 98 08/23/19 14:16 08/23/19 14:16 08/23/19 14:16 08/23/19 14:16 08/23/19 14:16 - General General appearance: Alert, Anxious - HEENT Head: Normocephalic, Atraumatic Eyes: Normal Pupils: PERRL - Respiratory Respiratory status: No respiratory distress Chest status: Nontender Breath sounds: Normal Chest palpation: Normal - Cardiovascular Rhythm: Regular Heart sounds: Normal auscultation Murmur: No - Abdominal Inspection: Normal Distension: No distension Bowel sounds: Normal Tenderness: Tender - RLQ tenderness with palpation Organomegaly: No organomegaly - Back Back: CVA tenderness - Right CVA tenderness with palpation - Extremities General upper extremity: Normal inspection General lower extremity: Normal inspection - Neurological Neuro grossly intact: Yes - Psychological Associated symptoms: Anxious - Skin Skin Temperature: Warm Skin Moisture: Dry Skin Color: Normal Course - Re-evaluation Re-evalutation: 08/23/19 19:44 Results of ED MSE discussed with patient and patient spouse. All questions were answered prior to discharge. All reports and laboratory findings were reviewed by this MD prior to patient leaving the department. - Vital Signs Vital signs: Temp Pulse Resp BP Pulse Ox 97.8 F 66 16 117/70 97 08/23/19 16:57 08/23/19 16:57 08/23/19 16:57 08/23/19 16:57 08/23/19 16:57 - Laboratory Result Diagrams: 08/23/19 14:51 08/23/19 14:51 Laboratory results interpreted by me: 08/23/19 08/23/19 14:51 14:51 WBC 3.4 L RBC 5.36 H Hgb 15.8 H Urine Protein 30 H Urine Ketones 20 H Discharge - Discharge Clinical Impression: Flank pain Diarrhea Qualifiers: Diarrhea type: unspecified type Qualified Code(s): R19.7 - Diarrhea, unspecified Condition: Good Disposition: HOME, SELF-CARE Additional Instructions: Return to the Emergency Department without delay if any worse. Diarrhea Diarrhea means frequent, watery stools. There are many causes. Any problem that keeps the intestinal tract from absorbing water from the stool can lead to diarrhea. A sudden new diarrhea problem is usually caused by a virus, food sensitivity, toxic bacteria, or drugs. In this case, we expect the problem to go away soon. Testing is done only if you seem seriously ill from the diarrhea. If you have chronic diarrhea, or diarrhea that keeps coming back, we need to find out why. Chronic diarrhea can be due to inflammation of the bowels such as Crohn's disease or ulcerative colitis, food sensitivity such as intolerance to lactose or wheat protein, irritable bowel syndrome, and other problems. If your diarrhea is a significant problem but it's not clear why you have it, we'll refer you to a specialist for further testing. During an episode of diarrhea, drink small amounts (two to six ounces) of clear liquids (soft drinks, sport drinks, herb teas, broth, etc). Take fluids frequently to prevent dehydration. It's usually not a problem to take mild anti- diarrhea medication such as Kaopectate or Pepto-Bismol. As the diarrhea eases, advance to small amounts of bland food (mashed potato, toast) for 24 hours. Call the physician if blood appears in your vomit or stool, if vomiting lasts longer than 24 hours, if the abdominal pain worsens or becomes localized to one area, if you develop high fever, or if you become lightheaded and weak. HOME CARE INSTRUCTIONS & INFORMATION: Thank you for choosing us for your medic al needs. We hope you're satisfied with the care you received. After you leave, you must properly care for your problem and, at the same time, observe its progress. Any condition can change. Some illnesses can change rapidly over hours or days. If your condition worsens, return to the Emergency Department or see your physician promptly. ABOUT YOUR X-RAYS AND EKG'S: If you had an EKG or X-rays taken, they have been read by the Emergency Physician. The X-rays and EKG's will also be read by a Radiologist or Carton Inspector within 24 hours. If discrepancies are noted, you will be notified by telephone. Please be certain the ED has a correct telephone number & address where you can be reached. Also, realize that some fractures or abnormalities do not show up on initial X-rays. If your symptoms continue, see your physician. ABOUT YOUR LABORATORY TEST: If you had laboratory tests, the results have been reviewed by the Emergency Physician. Some test results (for example cultures) may not be available for several days. You will be contacted if any test result shows you need additional treatment. Please be certain the ED has a correct telephone number and address where you can be reached. ABOUT YOUR MEDICATIONS: You will receive instructions on how to take your medicine on the prescription label you receive. Additional information may be provided by the Pharmacy. If you have questions afterwards, call the ED for clarification or further instructions. Some prescribed medications may cause drowsiness. Do not perform tasks such as driving a car or operating machinery without consulting your Pharmacist. If you feel you need a refill of pain medication, your condition will need re-evaluation. Please do not call for a refill of any medication. ABOUT YOUR SIGNATURE: Signature of this document acknowledges to followin. Understanding that you received emergency treatment and that you may be released before al medical problems are known or treated. Please be certain the ED has a correct phone number & address where you can be reached. 2. Acknowledgement that you will arrange for follow-up care as recommended. 3. Authorization for the Emergency Physician to provide information to your follow-up Physician in order to maximize your care. AT ANY TIME, IF YOUR SYMPTOMS CHANGE SIGNIFICANTLY OR WORSEN OR YOU DEVELOP NEW SYMPTOMS, RETURN TO THE EMERGENCY DEPARTMENT IMMEDIATELY FOR RE-EVALUATION. Flank Pain We weren't able to prove an exact cause for your flank pain. Pain in the flank can be caused by a muscle strain or spasm. Sometimes a kidney stone causes pain, but can't be found on our tests. Infection in the kidney should be evident on a urine test. Early shingles can occasionally cause flank pain, without the rash that proves the diagnosis. On rare occasions, disease of the pancreas, aorta, spleen, or colon can create pain in the flank. At this time, there's no evidence of a dangerous condition, and it seems safe for you to be at home. If the pain goes away and does not come back, no further testing will be needed. If pain persists, or becomes more severe, we may need to repeat some tests or order additional new testing. Blood in the urine, urgency to urinate frequently, and pain that radiates to the groin can indicate a kidney stone. Fever may mean that the pain is due to infection, either of the kidney or the colon (diverticulitis). If your pain is early shingles, you should develop an eruption of blisters in the painful area within a few days. Call the doctor or return if you have pain that is spreading or becoming more severe, pain that does not resolve with time, fever, or any other new symptoms. OUR GOAL IS TO PROVIDE EXCELLENT MEDICAL CARE! WE HOPE THAT WE HAVE MET YOUR EXPECTATIONS DURING YOUR EMERGENCY DEPARTMENT VISIT AND THAT YOU FEEL YOU HAVE RECEIVED EXCELLENT CARE! I personally performed the services described in the documentation, reviewed and edited the documentation which was dictated to the scribe in my presence, and it accurately records my words and actions.
--- NOTE | 2019-08-23 18:37 | RADIOLOGY REPORT (SQ) ---
EXAM DESCRIPTION: CT ABDOMEN IV CONTRAST ONLY COMPLETED DATE/TIME: 08/23/2019 6:19 pm REASON FOR STUDY: right flank pain, ? renal mass on u/s COMPARISON: Renal ultrasound, 08/23/2019, noncontrast CT abdomen pelvis, 08/08/2019 TECHNIQUE: CT scan of the abdomen performed with intravenous and without oral contrast using helical scanning technique with dynamic intravenous contrast injection. Images reviewed with lung, soft tiss ue, and bone windows. Reconstructed coronal and sagittal MPR images reviewed. Multiphasic arterial, v enous, and delayed phase examination performed. All images stored on PACS. All CT scanners at this facility use dose modulation, iterative reconstruc tion, and/or weight based dosing when appropriate to reduce radiation dose to as low as reasonably ac hievable (ALARA). [facility]: Dose Right [facility]: CareDose [facility]: Dose Right [facility]: Teradose 4D [facility]: LessonLab CONTRAST TYPE AND DOSE: contrast/concentration: Isovue 350.00 mg/ml; Total Contrast Delivered: 61.0 ml; Total Saline Delivered: 65.0 ml RENAL FUNCTION: None required. The patient is less than 50 years old. RADIATION DOSE: CT Rad equipment meets quality standard of care and radiation dose reduction techniq ues were employed. CTDIvol: 3.8 - 30.2 mGy. DLP: 430 mGy-cm. . LIMITATIONS: None. FINDINGS: LOWER CHEST: Bibasilar scarring or atelectasis. LIVER: Normal size. No masses. No dilated ducts. SPLEEN: Normal size. No focal lesions. PANCREAS: No masses. No significant calcifications. No adjacent inflammation or peripancreatic fluid collections. Pancreatic duct not dilated. GALLBLADDER: Surgically absent. ADRENAL GLANDS: No significant masses or asymmetry. RIGHT KIDNEY AND URETER: No solid masses. No significant calcifications. No hydronephrosis or hyd roureter. LEFT KIDNEY AND URETER: No solid masses. There is an exophytic, fluid attenuation cyst of the inferi or pole of the left kidney without evidence of contrast enhancement or evidence of adjacent inflammat ion. No significant calcifications. No hydronephrosis or hydroureter. AORTA AND VESSELS: No aneurysm. No dissection. Renal arteries, SMA, celiac without stenosis. RETROPERITONEUM: No retroperitoneal adenopathy, hemorrhage or masses. BOWEL AND PERITONEAL CAVITY: No masses or inflammatory changes. No free fluid or peritoneal masses. APPENDIX: Normal. ABDOMINAL WALL: No masses. No hernias. BONES: No significant or acute findings. OTHER: No other significant finding. IMPRESSION: There is an exophytic, fluid attenuation cyst of the inferior pole of the left kidney wi thout evidence of contrast enhancement or evidence of adjacent inflammation. TECHNICAL DOCUMENTATION: JOB ID: [id number] Quality ID # [id number]: Final reports with documentation of one or more dose reduction techniques (e.g., Au tomated exposure control, adjustment of the mA and/or kV according to patient size, use of iterative reconstruction technique) 2010 [employer]- All Rights Reserved Reading location - IP/workstation name: [email or web address]
[2019-08-23 19:56] VITALS: BP 120/72
== END 2019-08-23 19:56 | disposition home or self-care (01) ==
LOC: ER 13:19
DX: R10.9 Unspecified abdominal pain (principal); R19.7 Diarrhea, unspecified; R30.0 Dysuria; R10.30 Lower abdominal pain, unspecified; R35.0 Frequency of micturition; R39.198 Other difficulties with micturition
CPT/HCPCS: 36415; 74160; 76775; 80053; 81001; 85025; 99284

== ENCOUNTER 2019-09-21 13:22 | Emergency (ER) | payer MEDICAID ==
--- NOTE | 2019-09-21 14:50 | ER Document Report ---
ED Medical Screen (RME) - General Chief Complaint: Flank Pain Stated Complaint: POSSIBLE KIDNEY INFECTION Time Seen by Provider: 09/21/19 14:44 Mode of Arrival: Ambulatory Information source: Patient Notes: Patient presents emergency department with complaints of right-sided flank pain radiates to the right upper quadrant and down his right leg. Reports she has been treated for UTI multiple times in the past couple months. Reports she still having symptoms. Denies fever reports she has vomited. History of a right hip replacement. I have greeted and performed a rapid initial assessment of this patient. A comprehensive ED assessment and evaluation of the patient, analysis of test results and completion of the medical decision making process will be conducted by additional ED providers. TRAVEL OUTSIDE OF THE [place] IN LAST 30 DAYS: No - Related Data Allergies/Adverse Reactions: aspirin Allergy (Verified 09/21/19 14:43) meperidine HCl [From Demerol] Allergy (Verified 09/21/19 14:43) morphine Allergy (Verified 09/21/19 14:43) oxycodone [Oxycodone] Allergy (Verified 09/21/19 14:43) Penicillins Allergy (Verified 09/21/19 14:43) amoxicillin Adverse Reaction (Verified 09/21/19 14:43) itching latex [Latex] Adverse Reaction (Verified 09/21/19 14:43) Past Medical History - Social History Chew tobacco use (# tins/day): No Frequency of alcohol use: Occasional Neurological Medical History: Reports: Hx Seizures Renal/ Medical History: Denies: Hx Peritoneal Dialysis Psychiatric Medical History: Reports: Hx Bipolar Disorder, Hx Depression Past Surgical History: Reports: Hx Abdominal Surgery - colon., Hx Section, Hx Cholecystectomy, Hx Hysterectomy, Hx Orthopedic Surgery - rt hip surgery - Immunizations Hx Diphtheria, Pertussis, Tetanus Vaccination: No Physical Exam - Vital signs Vitals: Temp Pulse Resp BP Pulse Ox 98.6 F 91 18 119/74 100 09/21/19 14:14 09/21/19 14:14 09/21/19 14:14 09/21/19 14:14 09/21/19 14:14 Course - Vital Signs Vital signs: Temp Pulse Resp BP Pulse Ox 98.6 F 91 18 119/74 100 09/21/19 14:14 09/21/19 14:14 09/21/19 14:14 09/21/19 14:14 09/21/19 14:14
[2019-09-21 15:25] LABS: ABSOLUTE BASOPHILS # (AUTO) 0.1 10^3/uL (0.0-0.2); ABSOLUTE LYMPHOCYTES (AUTO) 1.3 10^3/uL (0.5-4.7); ABSOLUTE MONOCYTES (AUTO) 0.3 10^3/uL (0.1-1.4); ABSOLUTE NEUT (AUTO) 3.2 10^3/uL (1.7-8.2); BASOPHILS % (AUTO) 1.4 % (0-2); EOSINOPHILS % (AUTO) 0.1 % (0-6); HEMATOCRIT 45.7 % (36.0-47.0); HEMOGLOBIN 15.7 g/dL (12.0-15.5); LYMPHOCYTES % (AUTO) 27.3 % (13-45); MEAN CORPUSCULAR HEMOGLOBIN 29.2 pg (27.0-33.4); MEAN CORPUSCULAR HGB CONC 34.4 g/dL (32.0-36.0); MEAN CORPUSCULAR VOLUME 85 fl (80-97); MONOCYTES % (AUTO) 5.4 % (3-13); PLATELET COUNT 166 10^3/uL (150-450); RED BLOOD COUNT 5.39 10^6/uL (3.72-5.28); RED CELL DISTRIBUTION WIDTH 13.2 % (11.5-14.0); SEGMENTED NEUTROPHILS % (AUTO) 65.8 % (42-78); TOTAL CELLS COUNTED % (AUTO) 100 %; WHITE BLOOD COUNT 4.8 10^3/uL (4.0-10.5)
[2019-09-21 15:40] LABS: ALBUMIN 4.7 g/dL (3.5-5.0); ALKALINE PHOSPHATASE 102 U/L (38-126); ANION GAP 11 (5-19); ASPARTATE AMINO TRANSFERASE 17 U/L (14-36); BILIRUBIN,DIRECT 0.2 mg/dL (0.0-0.4); BILIRUBIN,TOTAL 0.4 mg/dL (0.2-1.3); BLOOD UREA NITROGEN 13 mg/dL (7-20); CALCIUM 9.8 mg/dL (8.4-10.2); CARBON DIOXIDE 29 mmol/L (22-30); CHLORIDE 100 mmol/L (98-107); GLUCOSE 92 mg/dL (75-110); POTASSIUM 4.3 mmol/L (3.6-5.0); TOTAL PROTEIN 7.8 g/dL (6.3-8.2)
--- NOTE | 2019-09-21 16:09 | RADIOLOGY REPORT (SQ) ---
EXAM DESCRIPTION: CT ABD/PELVIS NO ORAL OR IV COMPLETED DATE/TIME: 09/21/2019 3:30 pm REASON FOR STUDY: flank pain, suspect kidney stone COMPARISON: CT abdomen pelvis 08/08/2019 TECHNIQUE: CT scan of the abdomen and pelvis performed without intravenous or oral contrast. Images reviewed with lung, soft tissue, and bone windows. Reconstructed coronal and sagittal MPR images revi ewed. All images stored on PACS. All CT scanners at this facility use dose modulation, iterative reconstruction, and/or weight based d osing when appropriate to reduce radiation dose to as low as reasonably achievable (ALARA). [facility]: Dose Right [facility]: CareDose [facility]: Dose Right [facility]: Teradose 4D [facility]: Smart WinView RADIATION DOSE: CT Rad equipment meets quality standard of care and radiation dose reduction techniq ues were employed. CTDIvol: 4.8 mGy. DLP: 235 mGy-cm.mGy. LIMITATIONS: None. FINDINGS: LOWER CHEST: No acute findings. Stable bibasilar scarring/atelectasis. NON-CONTRASTED LIVER, SPLEEN, ADRENALS: Evaluation limited by lack of IV contrast. No identified sign ificant masses. PANCREAS: No masses. No peripancreatic inflammatory changes. GALLBLADDER: Surgically absent. RIGHT KIDNEY AND URETER: No suspicious masses. Assessment limited by lack of IV contrast. No signif icant calcifications. No hydronephrosis or hydroureter. LEFT KIDNEY AND URETER: No suspicious masses. Assessment limited by lack of IV contrast. No signifi cant calcifications. No hydronephrosis or hydroureter. AORTA AND RETROPERITONEUM: No aneurysm. No retroperitoneal masses or adenopathy. BOWEL AND PERITONEAL CAVITY: No obvious masses or inflammatory changes. No free fluid. APPENDIX: Not visualized. PELVIS, BLADDER, AND ABDOMINAL WALL:Hysterectomy. No abnormal masses. No free fluid. Bladder normal. BONES: Intact right iliac surgical hardware. No acute findings. OTHER: No other significant finding. IMPRESSION: No urolithiasis or other appreciable acute intra-abdominal findings. COMMENT: Quality ID # [id number]: Final reports with documentation of one or more dose reduction techniques (e.g., Automated exposure control, adjustment of the mA and/or kV according to patient size, use of iterative reconstruction technique) TECHNICAL DOCUMENTATION: JOB ID: [id number] [employer]- All Rights Reserved Reading location - IP/workstation name: [email or web address]
--- NOTE | 2019-09-21 16:12 | ER Document Report ---
ED General - General Chief Complaint: Flank Pain Stated Complaint: POSSIBLE KIDNEY INFECTION Time Seen by Provider: 09/21/19 14:44 Mode of Arrival: Ambulatory Information source: Patient Notes: Patient presents emergency department with complaints of right-sided flank pain radiates to the right upper quadrant and down her right leg. She reports pain with voiding. No complaints of vaginal discharge. Reports she has been treated for UTI multiple times in the past 4 months. Reports she still having symptoms. Denies diarrhea and fever reports she has vomited, but not recently. No nausea at this time. History of a right hip replacement. TRAVEL OUTSIDE OF THE [place] IN LAST 30 DAYS: No - HPI Onset: Other Onset/Duration: Persistent Quality of pain: Achy Associated symptoms: Vomiting Exacerbated by: Other - Voiding Relieved by: Denies Similar symptoms previously: Yes Recently seen / treated by doctor: Yes - Related Data Allergies/Adverse Reactions: aspirin Allergy (Verified 09/21/19 14:43) meperidine HCl [From Demerol] Allergy (Verified 09/21/19 14:43) morphine Allergy (Verified 09/21/19 14:43) oxycodone [Oxycodone] Allergy (Verified 09/21/19 14:43) Penicillins Allergy (Verified 09/21/19 14:43) amoxicillin Adverse Reaction (Verified 09/21/19 14:43) itching latex [Latex] Adverse Reaction (Verified 09/21/19 14:43) Past Medical History - General Information source: Patient - Social History Smoking Status: Former Smoker Chew tobacco use (# tins/day): No Frequency of alcohol use: Occasional Drug Abuse: None Family History: Reviewed & Not Pertinent Patient has suicidal ideation: No Patient has homicidal ideation: No Neurological Medical History: Reports: Hx Seizures Renal/ Medical History: Reports: Other - chronic uti. Denies: Hx Peritoneal Dialysis Psychiatric Medical History: Reports: Hx Bipolar Disorder, Hx Depression Past Surgical History: Reports: Hx Abdominal Surgery - colon., Hx Section, Hx Cholecystectomy, Hx Hysterectomy, Hx Orthopedic Surgery - rt hip surgery - Immunizations Hx Diphtheria, Pertussis, Tetanus Vaccination: No Review of Systems - Review of Systems Notes: Review HPI for review of systems., All other systems negative Physical Exam - Vital signs Vitals: Temp Pulse Resp BP Pulse Ox 98.6 F 91 18 119/74 100 09/21/19 14:14 09/21/19 14:14 09/21/19 14:14 09/21/19 14:14 09/21/19 14:14 - General General appearance: Appears well, Alert In distress: None - HEENT Head: Normocephalic Eyes: Normal Conjunctiva: Normal Mouth/Lips: Normal Mucous membranes: Normal Neck: Normal, Supple - Respiratory Respiratory status: No respiratory distress Chest status: Nontender Breath sounds: Normal Chest palpation: Normal - Cardiovascular Rhythm: Regular Heart sounds: Normal auscultation Murmur: No - Abdominal Inspection: Normal Distension: No distension Bowel sounds: Normal Tenderness: Nontender Organomegaly: No organomegaly - Back Back: Normal, CVA tenderness - Right side - Extremities General upper extremity: Normal ROM General lower extremity: Normal ROM - Neurological Neuro grossly intact: Yes Cognition: Normal Orientation: AAOx4 Rm Coma Scale Eye Opening: Spontaneous Rm Coma Scale Verbal: Oriented Rm Coma Scale Motor: Obeys Commands [place] Coma Scale Total: 15 Speech: Normal - Psychological Associated symptoms: Normal affect, Normal mood - Skin Skin Temperature: Warm Skin Moisture: Dry Skin Color: Normal Course - Re-evaluation Re-evalutation: 09/21/19 16:55 Patient instructed on all results. CT without kidney stones. Labs unremarkable positive for UTI nitrate positive she was instructed on Macrobid. Also instructed on culture pending. She verbalized understanding to all instructions. She was also instructed on the importance of follow-up with her primary care provider and urology. Laboratory 09/21/19 09/21/19 09/21/19 15:07 15:07 16:00 WBC 4.8 RBC 5.39 H Hgb 15.7 H Hct 45.7 MCV 85 MCH 29.2 MCHC 34.4 RDW 13.2 Plt Count 166 Lymph % (Auto) 27.3 [place] % (Auto) 5.4 Eos % (Auto) 0.1 Baso % (Auto) 1.4 Absolute Neuts (auto) 3.2 Absolute Lymphs (auto) 1.3 Absolute Monos (auto) 0.3 Absolute Eos (auto) 0.0 Absolute Basos (auto) 0.1 Seg Neutrophils % 65.8 Sodium 140.2 Potassium 4.3 Chloride 100 Carbon Dioxide 29 Anion Gap 11 BUN 13 Creatinine 0.71 Est GFR ( Amer) > 60 Est GFR (MDRD) Non-Af > 60 Glucose 92 Calcium 9.8 Total Bilirubin 0.4 Direct Bilirubin 0.2 Neonat Total Bilirubin Not Reportable Neonat Direct Bilirubin Not Reportable Neonat Indirect Bili Not Reportable AST 17 ALT 13 Alkaline Phosphatase 102 Total Protein 7.8 Albumin 4.7 Urine Color YELLOW Urine Appearance CLOUDY Urine pH 6.0 Ur Specific [place] 1.016 Urine Protein NEGATIVE Urine Glucose (UA) NEGATIVE Urine Ketones NEGATIVE Urine Blood NEGATIVE Urine Nitrite (Reflex) POSITIVE H Urine Bilirubin NEGATIVE Urine Urobilinogen NEGATIVE Leukocyte Esterase Rfl MODERATE H Urine RBC (Auto) 2 Urine Bacteria (Auto) 1+ Urine WBC (Reflex) 110 Squamous Epi Cells Auto 10 Urine Mucus (Auto) MOD Urine Ascorbic Acid NEGATIVE Urine HCG, Qual NEGATIVE Abdomen/Pelvis CT 09/21/19 14:47 IMPRESSION: No urolithiasis or other appreciable acute intra-abdominal findings. 09/21/19 18:51 - Vital Signs Vital signs: Temp Pulse Resp BP Pulse Ox 98.4 F 63 17 112/75 100 09/21/19 17:01 09/21/19 17:01 09/21/19 17:01 09/21/19 17:01 09/21/19 17:01 - Laboratory Result Diagrams: 09/21/19 15:07 09/21/19 15:07 Laboratory results interpreted by me: 09/21/19 09/21/19 15:07 16:00 RBC 5.39 H Hgb 15.7 H Urine Nitrite (Reflex) POSITIVE H Leukocyte Esterase Rfl MODERATE H - Diagnostic Test Radiology reviewed: Reports reviewed Discharge - Discharge Clinical Impression: Right flank pain UTI (urinary tract infection) Qualifiers: Urinary tract infection type: site unspecified Hematuria presence: without he maturia Qualified Code(s): N39.0 - Urinary tract infection, site not specified Condition: Stable Disposition: HOME, SELF-CARE Instructions: Flank Pain ([facility]), Nitrofurantoin ([facility]), Urinary Tract Infection ([facility]) Additional Instructions: *You have been evaluated for flank pain, uti *Your urine shows that you are positive for urinary tract infection A urine culture is pending. You may be contacted should we need to switch antibiotics Take medication as prescribed *Follow up with a primary care provider within 1 week for referral to urology. *Return to ED for worsening condition, changes, needs Prescriptions: Nitrofurantoin/Nitrofuran Mac [Macrobid 100 mg Capsule] 100 mg PO BID #20 capsule
[2019-09-21 16:23] LABS: APPEARANCE,URINE CLOUDY; BILIRUBIN,URINE NEGATIVE (NEGATIVE); COLOR,URINE YELLOW; GLUCOSE, URINE NEGATIVE (NEGATIVE); KETONES,URINE NEGATIVE (NEGATIVE); PROTEIN,URINE NEGATIVE (NEGATIVE); URINE SPECIFIC GRAVITY 1.016; UROBILINOGEN,URINE NEGATIVE mg/dL (<2.0)
[2019-09-21 17:03] VITALS: BP 112/75
== END 2019-09-21 17:06 | disposition home or self-care (01) ==
LOC: ER 13:22
DX: N39.0 Urinary tract infection, site not specified (principal); R10.9 Unspecified abdominal pain; Z87.891 Personal history of nicotine dependence; Z88.8 Allergy status to other drugs, medicaments and biological substances; Z88.6 Allergy status to analgesic agent; Z88.5 Allergy status to narcotic agent; Z88.0 Allergy status to penicillin
CPT/HCPCS: 36415; 74176; 80053; 81001; 81025; 85025; 99284